=== PATIENT | male | born 1950 | race Caucasian/White ===

== ENCOUNTER → 2019-05-10 | Outpatient (CLI) | payer MEDICARE, OTHER ==
[~2019-05-10] MED LIST: ASPI81CH PO; ATEN25; CRUTCH4 USE; DIPH50 PO; FAMO20 PO; FENO67 PO; HYDACE5 PO; LISI5 PO; METF500 PO; PRED20 PO
== END | disposition home or self-care (01) ==
LOC: LAB SHORT 10:47 → PLD 10:47
DX: D48.5 Neoplasm of uncertain behavior of skin (principal)
CPT/HCPCS: 88305

== ENCOUNTER 2019-10-22 09:38 | Inpatient (IN) | payer MEDICARE, OTHER ==
[~2019-10-22] VITALS: Ht 182.9 cm; Wt 98.0 kg
[~2019-10-22 09:38] MED LIST changes: -ASPI81CH PO; +Aspir 8181 MG PO; -FENO67 PO
[2019-10-22 11:14] LABS: Source, Urine Clean Catch
[2019-10-22 11:15] LABS: BASOPHILS ABSOLUTE AUTO 0.09 K/mm3 (0.00-0.23); BASOPHILS PERCENT AUTO 0 % (0-2); EOSINOPHILS ABSOLUTE AUTO 0.02 K/mm3 (0.00-0.68); EOSINOPHILS PERCENT AUTO 0 % (0-6); Hematocrit 45.5 % (37.0-53.0); Hemoglobin 15.5 g/dL (13.5-17.5); IMMATURE GRAN ABSOLUTE AUTO 0.15 K/mm3 (0.00-0.10); IMMATURE GRAN PERCENT AUTO 1 % (0-1); LYMPHOCYTES ABSOLUTE AUTO 1.91 K/mm3 (0.84-5.20); LYMPHOCYTES PERCENT AUTO 7 % (21-46); MONOCYTES ABSOLUTE AUTO 1.65 K/mm3 (0.16-1.47); MONOCYTES PERCENT AUTO 6 % (4-13); Mean Corpuscular HGB Conc 34.1 g/dL (31.5-36.5); Mean Corpuscular Volume 88 fL (80-100); NEUTROPHILS ABSOLUTE AUTO 22.11 K/mm3 (1.96-9.15); NEUTROPHILS PERCENT AUTO 85 % (41-73); Platelet Count 241 K/mm3 (150-400); RDW Coefficient Variation 13.8 % (11.7-14.2); RDW Standard Deviation 44.9 fL (35.1-46.3); Red Blood Cell Count 5.16 M/mm3 (4.30-5.90); White Blood Cell Count 25.93 K/mm3 (4.00-11.30)
[2019-10-22 11:20] LABS: Bilirubin, Urine Neg (Neg); Blood, Urine 2+ (Neg); Glucose Qualitative, Urine Neg (Neg); Ketones, Urine 1+ (Neg); Leukocyte Esterase, Urine Neg (Neg); Nitrite, Urine Neg (Neg); Protein, Urine 3+ (Neg); Specific Gravity, Urine 1.015 (1.003-1.022); Urobilinogen, Urine 2+ (Normal)
[2019-10-22 11:38] LABS: Alanine Aminotransfer (ALT/SGP 30 U/L (12-78); Albumin/Globulin Ratio 0.6 (0.8-1.8); Alk Phos 75 U/L (50-136); Anion Gap 12 mmol/L (6-16); Aspartate Aminotrans (AST/SGOT 24 U/L (12-37); Bilirubin, Total 0.8 mg/dL (0.1-1.0); Blood Urea Nitrogen 25 mg/dL (8-24); Bun/Creatinine Ratio 23.1 (12.0-20.0); CO2, Blood 22 mmol/L (21-32); Chloride, Blood 100 mmol/L (98-108); Creatinine, Blood 1.08 mg/dL (0.60-1.20); Globulin, Blood 5.1 g/dL (2.2-4.0); Glomerular Filtration Rate >60 (60-); Glucose, Blood 174 mg/dL (70-99); Potassium, Blood 4.4 mmol/L (3.5-5.5); Sodium, Blood 134 mmol/L (136-145); Total Protein, Blood 8.1 g/dL (6.4-8.2)
[2019-10-22 11:43] LABS: Appearance, Urine Hazy (Clear); Color, Urine Yellow (P-Yellow)
[2019-10-22 11:44] LABS: Bacteria Mod /hpf; Squamous Epithelial Cells Few /hpf (Few)
[2019-10-22 11:45] LABS: Mucus Light (0-Heavy)
[2019-10-22] MEDS ORDERED: MULTIVITAMINS1 EAC3 PO (12:55)
[2019-10-22] MEDS ORDERED: OMEP20ER PO (12:56)
[2019-10-22] MEDS ORDERED: KRILL OIL500 MG PO (12:56)
[2019-10-22] MEDS ORDERED: TURMERIC 500 M1 EACH PO (12:57)
[2019-10-22] MEDS ORDERED: Cinnamon500 MG PO (12:57)
[2019-10-22] MEDS ORDERED: ROSU5 PO (12:58)
[2019-10-22 14:08] LABS: Thyroid Stimulating Hormone 1.76 uIU/mL (0.360-4.800)
[2019-10-22] MEDS ORDERED: METF500 PO (15:34)
--- NOTE | 2019-10-22 15:50 | NUR ---
PT ARRIVED TO FLOOR FROM ED VIA STRETCHER AAOX3 @ 1540. VS STABLE, ASIDE FROM ELEVATED HR. HR AFIB 110-120S ON TELE MONITOR; PT DENIES ANY SOB, CHEST PAIN, OR PALPITATIONS. PT C/O MILD RUQ ABDOMINAL PAIN RATING 3/10, PREVIOUSLY GIVEN FENTANYL IN ED. PT REMAINS NPO AT THIS TIME; PLAN IS FOR POSSIBLE LAP NAREN TODAY IF HR COMES DOWN. PT GIVEN 25MG LOPRESSOR PO & 500CC NS BOLUS HUNG PER MD ORDER. ADMISSION DOCUMENTATION TO BE COMPLETED. FAMILY AT BEDSIDE; ORIENTED PT & FAMILY TO ROOM, EDUCATED ON FALL PRECAUTIONS, & DISCUSSED PLAN. WILL CONTINUE TO MONITOR.
--- NOTE | 2019-10-22 16:52 | NUR ---
Surgical site prepped with 2% Chlorhexidine cloth wipe. Lungs clear T/O to Auscultation. History, Chart, Medications and Allergies reviewed before start of procedure.Patient confirms NPO status and agrees with scheduled surgery. Pre-Op teaching done. Pt verbalizes understanding. Patient States Post-Procedure ride home has been arranged.
--- NOTE | 2019-10-22 19:07 | NUR ---
SHIFT SUMMARY NO ACUTE CHANGES FROM PRIOR. PT WAS TRANSPORTED OFF FLOOR TO OR FOR LAP NAREN @ 3468. PT CURRENTLY IN PACU. REPORT GIVEN TO OXYGEN EQUIPMENT TECHNICIAN MARK CORONEL.
[2019-10-23 05:35] LABS: BASOPHILS ABSOLUTE AUTO 0.03 K/mm3 (0.00-0.23); BASOPHILS PERCENT AUTO 0 % (0-2); EOSINOPHILS ABSOLUTE AUTO 0.01 K/mm3 (0.00-0.68); EOSINOPHILS PERCENT AUTO 0 % (0-6); Hematocrit 40.6 % (37.0-53.0); Hemoglobin 13.4 g/dL (13.5-17.5); IMMATURE GRAN ABSOLUTE AUTO 0.04 K/mm3 (0.00-0.10); IMMATURE GRAN PERCENT AUTO 0 % (0-1); LYMPHOCYTES ABSOLUTE AUTO 1.26 K/mm3 (0.84-5.20); LYMPHOCYTES PERCENT AUTO 9 % (21-46); MONOCYTES PERCENT AUTO 6 % (4-13); Mean Corpuscular HGB 30.2 pg (26.0-34.0); Mean Platelet Volume 10.6 fL (9.1-12.4); NEUTROPHILS ABSOLUTE AUTO 12.32 K/mm3 (1.96-9.15); NEUTROPHILS PERCENT AUTO 85 % (41-73); Platelet Count 229 K/mm3 (150-400); RDW Coefficient Variation 14.2 % (11.7-14.2); RDW Standard Deviation 47.9 fL (35.1-46.3); Red Blood Cell Count 4.44 M/mm3 (4.30-5.90); White Blood Cell Count 14.46 K/mm3 (4.00-11.30)
[2019-10-23 05:42] LABS: Mean Corpuscular Volume 91 fL (80-100)
--- NOTE | 2019-10-23 05:43 | NUR ---
PATIENT CONDITION IMPROVING SINCE RETURN FROM PACU. PAIN IS MORE CONTROLLED AND PATIENT IS SITTING SELF ON SIDE OF BED TO URINATE. HARDEEP DRAIN DRAIN RED FLUIDS.
[2019-10-23 05:58] LABS: Alanine Aminotransfer (ALT/SGP 52 U/L (12-78); Albumin, Blood 2.3 g/dL (3.4-5.0); Albumin/Globulin Ratio 0.5 (0.8-1.8); Alk Phos 68 U/L (50-136); Anion Gap 9 mmol/L (6-16); Aspartate Aminotrans (AST/SGOT 35 U/L (12-37); Bilirubin, Total 0.5 mg/dL (0.1-1.0); Blood Urea Nitrogen 22 mg/dL (8-24); Bun/Creatinine Ratio 19.6 (12.0-20.0); CO2, Blood 24 mmol/L (21-32); Calcium, Blood 7.6 mg/dL (8.5-10.1); Chloride, Blood 106 mmol/L (98-108); Creatinine, Blood 1.12 mg/dL (0.60-1.20); Globulin, Blood 4.2 g/dL (2.2-4.0); Glomerular Filtration Rate >60 (60-); Glucose, Blood 197 mg/dL (70-99); Potassium, Blood 3.9 mmol/L (3.5-5.5); Sodium, Blood 139 mmol/L (136-145); Total Protein, Blood 6.5 g/dL (6.4-8.2)
--- NOTE | 2019-10-23 08:00 | NUR ---
ASSUMPTION OF CARE RECEIVED REPORT FROM CLIENT SERVICES VICE PRESIDENT MARK CORONEL @ 0700. PT AAOX3 RESTING IN BED, VS STABLE. PT C/O RUQ ABDOMINAL PAIN RATING 7/10; PAIN MEDS ADMINISTERED. PT S/P LAP NAREN, ABDOMINAL INCISIONS PRESENT X4, STERISTRIPS IN PLACE, HARDEEP DRAIN PRESENT TO BULB SUCTION DRAINING SEROSANGUINOUS FLUID. PT OPEN FOR ECHO TODAY. BED LOCKED & IN LOWEST POSITION, CALL BAUTISTA W/ IN REACH. WILL CONTINUE TO MONITOR.
--- NOTE | 2019-10-23 18:24 | NUR ---
SHIFT SUMMARY PT'S PAIN UNCONTROLLED EARLIER, REPORTING 7/10 PAIN IN ABDOMEN AFTER ADMINISTRATION OF MEDICATION; DISCUSSED W/ DR. LEWIS; ORDERED NEW PAIN MEDICATION WHICH PT REPORTS GAVE HIM MUCH RELIEF. HR AVERAGED 110-120S MOST OF SHIFT; DID JUMP UP TO 130S-140S AT ONE POINT, IV LOPRESSOR ADMINISTERED, HR CAME DOWN TO 110-120S. NO CHANGES TO ABDOMINAL INCISION SITES. PT CURRENTLY SITTING UP IN CHAIR IN NO DISTRESS. FAMILY AT BEDSIDE. WILL CONTINUE TO MONITOR UNTIL END OF SHIFT.
[2019-10-24 04:17] LABS: BASOPHILS ABSOLUTE AUTO 0.04 K/mm3 (0.00-0.23); BASOPHILS PERCENT AUTO 0 % (0-2); EOSINOPHILS ABSOLUTE AUTO 0.15 K/mm3 (0.00-0.68); EOSINOPHILS PERCENT AUTO 2 % (0-6); Hemoglobin 11.5 g/dL (13.5-17.5); IMMATURE GRAN ABSOLUTE AUTO 0.05 K/mm3 (0.00-0.10); IMMATURE GRAN PERCENT AUTO 1 % (0-1); LYMPHOCYTES ABSOLUTE AUTO 1.37 K/mm3 (0.84-5.20); LYMPHOCYTES PERCENT AUTO 14 % (21-46); MONOCYTES ABSOLUTE AUTO 0.79 K/mm3 (0.16-1.47); MONOCYTES PERCENT AUTO 8 % (4-13); Mean Corpuscular HGB 30.2 pg (26.0-34.0); Mean Corpuscular HGB Conc 32.9 g/dL (31.5-36.5); Mean Corpuscular Volume 92 fL (80-100); Mean Platelet Volume 10.3 fL (9.1-12.4); NEUTROPHILS ABSOLUTE AUTO 7.13 K/mm3 (1.96-9.15); NEUTROPHILS PERCENT AUTO 75 % (41-73); Platelet Count 208 K/mm3 (150-400); RDW Standard Deviation 47.4 fL (35.1-46.3); Red Blood Cell Count 3.81 M/mm3 (4.30-5.90); White Blood Cell Count 9.53 K/mm3 (4.00-11.30)
[2019-10-24 04:41] LABS: Anion Gap 7 mmol/L (6-16); Blood Urea Nitrogen 17 mg/dL (8-24); Bun/Creatinine Ratio 19.1 (12.0-20.0); CO2, Blood 25 mmol/L (21-32); Calcium, Blood 7.2 mg/dL (8.5-10.1); Chloride, Blood 108 mmol/L (98-108); Creatinine, Blood 0.89 mg/dL (0.60-1.20); Glomerular Filtration Rate >60 (60-); Glucose, Blood 158 mg/dL (70-99); Magnesium, Blood 2.3 mg/dL (1.6-2.4); Potassium, Blood 3.6 mmol/L (3.5-5.5); Sodium, Blood 140 mmol/L (136-145)
--- NOTE | 2019-10-24 06:13 | NUR ---
NO CHANGES THROUGHOUT SHIFT, PAIN BETTER CONTROLED, SITING ON SIDE OF BED IN GOOD SPIRITS.
--- NOTE | 2019-10-24 07:55 | NUR ---
ASSUMPTION OF CARE RECEIVED REPORT FROM MARK CORONEL. PT AAOX3 RESTING COMFORTABLY IN BED. NO S/S OF DISTRESS. VS STABLE. PAIN MUCH BETTER TODAY, CURRENTLY RATING 3/10. STERI STRIPS ON ABDOMINAL INCISIONS REMAIN CLEAN, DRY, & INTACT; HARDEEP DRAIN TO BULB SUCTION. BED LOCKED & IN LOWEST POSITION, CALL BAUTISTA W/ IN REACH. WILL CONTINUE TO MONITOR.
--- NOTE | 2019-10-24 17:08 | NUR ---
SHIFT SUMMARY NO ACUTE CHANGES THROUGHOUT SHIFT. VS STABLE. HR RANGING FROM 120-130S; METOPROLOL WAS INCREASED FROM 25MG TO 50MG BID. PAIN WAS BETTER CONTROLLED TODAY. PT DENIES ANY C/O CHEST PAIN, PALPITATIONS, OR SOB. ABOUT 75 CC EMPTIED FROM HARDEEP DRAIN. PT CURRENTLY SITTING OOB IN CHAIR. WILL CONTINUE TO MONITOR UNTIL END OF SHIFT.
--- NOTE | 2019-10-25 01:03 | NUR ---
UPDATE PT A&O; C/O ABDOMEN PAIN; BRACING W/ PILLOW; REPOSITIONED AND MEDICATED PER EMAR; HARDEEP DRAINING PINK SANGUENOUS; AFIB NOTED ON TELE W/ HR 100'S; O2 SATS >93 ON RA; DIM LUNG SOUNDS NOTED; PT CURRENTLY SLEEPING; CALL LIGHT IN REACH; BED IN LOWEST POSITION; HAND OFF REPORT GIVEN TO MARK CORONEL.
--- NOTE | 2019-10-25 19:46 | NUR ---
SHIFT SUMMARY: PT ALERT AND ORIENTED, HRR AFIB ON THE 150'S WITH MOVEMENTS/EXCERTION 110'S-120'S WITH RESTING PERIOD. DR WRIGHT SAW PT TODAY PULLED HARDEEP DRAIN OUT, 2X GAUZE DRESSING IN PLACE WITH TRANSPARENT DRESSING, THE REST OF THE ABD SITES POST LAP NAREN REMAINED INTACT AND WNL. PT FOR POSS DISCHARGE TOMORROW DEPENDING ON HEART FUNCTION, PT WITH ORDER FO INCREASE DOSE OF TOPROLOL PO TO 75 MG BID. NO CHEST PAIN REPORTED FOR THE SHIFT. PT OFFERED PRUNE JUICE FOR BOWEL AND HAS LARGE BM RESULT. PT CURRENTLY RESTING IN BED CALL LIGHTS WITHIN REACH, REPORT GIVEN TO ONCOMING NURSE.
--- NOTE | 2019-10-26 06:00 | NUR ---
SHIFT SUMMARY. REPORTS POST NASAL GTT AND PRODUCES LOOSE COUGH LAST NOC. FEW BBC NOTED. ENC TO TURN COUGH AND DEEP BREATHE .INDEPENDENT IN ROOM AND NO ACUTE DISCOMFORT.REPORTS LOWER ABD CRAMPING AND REQ PAIN MED AND SLEEPER . HAD GOOD BM AND REFUSED STOOL SOFTENER. ABD DSG D+I. SLEPT ALL NOC W/ SLEEP STUDY IN PROGRESS. NOTED WHEN AWAKE AND IF OOB TO BR. AF HR 140 . WHEN ASLEEP POST LOPRESSOR INCREASE DOSE AF HR 90-114.REOPORT TO DAY RN AND EVAL WHEN MORE OOB THIS AM. NO ACUTE ISSUES, NOW. NO NAUSEA OR GI DISTRESS
[2019-10-26 11:13] LABS: Hematocrit 38.4 % (37.0-53.0); Hemoglobin 12.8 g/dL (13.5-17.5); Mean Corpuscular HGB 29.9 pg (26.0-34.0); Mean Corpuscular HGB Conc 33.3 g/dL (31.5-36.5); Mean Corpuscular Volume 90 fL (80-100); Mean Platelet Volume 10.1 fL (9.1-12.4); Platelet Count 332 K/mm3 (150-400); RDW Coefficient Variation 13.7 % (11.7-14.2); RDW Standard Deviation 44.5 fL (35.1-46.3); Red Blood Cell Count 4.28 M/mm3 (4.30-5.90); White Blood Cell Count 8.02 K/mm3 (4.00-11.30)
[2019-10-26 11:38] LABS: Anion Gap 7 mmol/L (6-16); Blood Urea Nitrogen 12 mg/dL (8-24); Bun/Creatinine Ratio 13.6 (12.0-20.0); CO2, Blood 27 mmol/L (21-32); Calcium, Blood 8.3 mg/dL (8.5-10.1); Chloride, Blood 105 mmol/L (98-108); Creatinine, Blood 0.89 mg/dL (0.60-1.20); Glomerular Filtration Rate >60 (60-); Glucose, Blood 225 mg/dL (70-99); Potassium, Blood 3.6 mmol/L (3.5-5.5); Sodium, Blood 139 mmol/L (136-145)
--- NOTE | 2019-10-26 14:02 | NUR ---
permission of care was given at 1400 on 10/26/2019.
--- NOTE | 2019-10-26 16:46 | NUR ---
SHIFT SUMMARY: PT ALERT AND ORIENTED, AMBULATING FREQUENTLY IN THE UNIT AND ROOM. PT TO STAY ONE MORE NIGHT FOR OBSERVATION, NEW ORDER RECEIVED FOR CARDIZEM DRIP, HR STILL STAYS AT 100-110'S AFIB. LUNGS WITH BILAT BASILAR CRACKLES, NO SOB/, SATS ABOVE 90% ON ROOMAIR. DENIES CHEST PAIN FOR THE SHIFT. BP SYSTOLIC RANGING ON THE 120'S-130'S. PT ON CLOSE HEART MONITORING FOR CARDIZEM DRIP. CURENTLY AT 10MG/HR AT THIS TIME. PT CURRENTLY RESTING IN BED, ABDOMINAL INCISION SITE INTACT, NO REPORTED ABD PAIN. PT C/O ALLERGY, WATERY EYES AND RUNNY NOSE, LORATIDINE ORDER GIVEN, AWAITING FOR RESPONSE FOR EFFECTIVENESS. TO GIVE REPROT TO ONCOMING SHIFT.
--- NOTE | 2019-10-27 03:18 | NUR ---
ASSUMED CARE AT 1900. NOTED WHEN OOB TO BR, AF HR 130. CARDIZEM GTT AT 10 MG HR. LOPRESSOR 100MG GIVEN PER SCHEDULED AND OFF TO SLEEP POST SLEEPING AID. HR NOTED TO HIT 66, TURNED DOWN CARDIZEM DOWN TO 5 MG HR 2230. BP LOWER POST LOPRESSOR AND HALF ASLEEP. RECHECK BP IN 1.5 HR AND WNL.BY 2330 CARDIZEM 2 MG HR. W/ HR 70-80'S. WHEN OOB TO BR, AF HR UP TO 110, WHILE UP. BACK TO SLEEP AVERAGING, 90'S..THEN OOB TO BR AVERAGE 110. DENIES ANY PAIN. STERI STRIPS AND ABD DSG WNL / INTACT. LOWER EXT 2 + PITTING EDEMA. NO SOB WHEN UP . LUNGS CLEAR
--- NOTE | 2019-10-27 06:17 | NUR ---
SHIFT SUMMARY CARDIZEM TURNED OFF NOW WITH RATE AT 2 MG HR SINCE MID NOC 80'S AND 90'S AVERAGE. OOB TO BR WHEN FIRST TURNED OFF AND NOTED 120 . WHEN BACK TO BED 100. NO ACUTE DISCOMFORT. RARE CRAMPING LOWER ABD, NO NAUSEA
--- NOTE | 2019-10-27 08:00 | NUR ---
ASSUMPTION OF CARE RECEIVED REPORT AROUND 0710. PT AAOX4. VS STABLE; HR AVERAGING AFIB 90-110S. NO S/S OF DISTRESS. PT DENIES ANY C/O PAIN, SOB, OR PALPITATIONS. ABDOMINAL INCISIONS C/D/I - STERI STRIPS PRESENT X3, GAUZE/TEGADERM PRESENT TO RT LOWER ABD. PT CURRENTLY SITTING OOB IN CHAIR, HAS BEEN WALKING AROUND UNIT FREQUENTLY. PT REPORTS FEELING GREAT TODAY. PLAN FOR POSSIBLE DISCHARGE IF HR CONTORLLED. WILL CONTINUE TO MONITOR.
[2019-10-27] MEDS ORDERED: Loratadine10 MG PO (12:17)
[2019-10-27] MEDS ORDERED: LEVFLO500 PO (12:43)
[2019-10-27] MEDS ORDERED: METO100 PO (12:43)
[2019-10-27] MEDS ORDERED: XARELTO20 MG PO (12:44)
[2019-10-27] MEDS ORDERED: Culturelle1 CAP PO (12:44)
--- NOTE | 2019-10-27 13:14 | NUR ---
Pt is doing well sitting thai a chair near the window and talking with his
--- NOTE | 2019-10-27 14:34 | NUR ---
DISCHARGE SUMMARY NO ACUTE CHANGES THROUGHOUT SHIFT. VS REMAINED STABLE. HR AVERAGED BETWEEN 90-100S. PT DENIED ANY C/O CHEST PAIN, SOB, OR PALPITATIONS. DISCHARGE EDUCATION COMPLETED W/ PT & PT'S . DISCUSSED MED REC & FOLLOW UP INSTRUCTIONS. PT VERBALIZED UNDERSTANDING & STATED HE WOULD FOLLOW UP INSTRUCTED W/ PCP/FOUNDRY PROCESS ENGINEER/SURGEON & TAKE MEDS PRESCRIBED. DETAILED DISCUSSION W/ PT & ABOUT AFIB S/S, RISKS, & IMPORTANCE OF ADHERENCE TO MEDS. EMPHASIZED TO SEEK MEDICAL ATTENTION IF PT PRESENTS W/ CHEST PAIN, SOB, PALPITATIONS. PT VERBALIZED UNDERSTANDING. DISCUSSED POST-OP NAREN CARE & PROVIDED HANDOUT ON LOW-FAT DIET. PT & TO PICKUP NEW PRESCRIPTIONS AT THEIR HOME PHARMACY. IV & TELE REMOVED. ALL PAPERWORK & BELONGINGS GIVEN TO PT & PT'S . PT DISCHARGED HOME. DECLINED WHEELCHAIR, AMBULATED OFF UNIT IN STABLE CONDITION.
== END 2019-10-27 14:20 | disposition home or self-care (01) | DRG 854 ==
LOC: ER 09:38 → PCU 13:22
PROVIDERS: Internal Medicine; Nurse Practitioner Acute Care; Physician Assistant; Surgery; ADMIT Internal Medicine
PROC: 0FT44ZZ Resection of Gallbladder, Percutaneous Endoscopic Approach (ICD-10-PCS; 2019-10-22)
PROC: BF101ZZ Fluoroscopy of Bile Ducts using Low Osmolar Contrast (ICD-10-PCS; principal; 2019-10-22 14:45)
DX: A41.9 Sepsis, unspecified organism (principal); K81.0 Acute cholecystitis; Z87.891 Personal history of nicotine dependence; K21.9 Gastro-esophageal reflux disease without esophagitis; G47.33 Obstructive sleep apnea (adult) (pediatric); I10 Essential (primary) hypertension; E11.9 Type 2 diabetes mellitus without complications; Z79.84 Long term (current) use of oral hypoglycemic drugs; E78.5 Hyperlipidemia, unspecified; K82.A1 Gangrene of gallbladder in cholecystitis; I48.0 Paroxysmal atrial fibrillation; Z79.82 Long term (current) use of aspirin
CPT/HCPCS: 36415; 71045; 74176; 74300; 80048; 80053; 81001; 82947; 83605; 83690; 83735; 83880; 84443; 84484; 85025; 85027; 87040; 87070; 87075; 87076; 87077; 87086; 87185; 87186; 87205; 88304; 93005; 93010; 93306; 94762; 96361; 96365; 96375; 99285-25; A9270-GY; C1729; C9113; J1170; J2250; J2543; J2704; J3010; J7030; J7040; J7120; Q0163

== ENCOUNTER 2023-09-05 07:59 | Day surgery (SDC) | payer OTHER ==
[~2023-09-05] VITALS: Ht 180.3 cm; Wt 84.2 kg
[~2023-09-05 07:59] MED LIST changes: +Cinnamon500 MG PO; +Culturelle1 CAP PO; +KRILL OIL500 MG PO; +LEVFLO500 PO; +Lisinopril2.5 MG; +Loratadine10 MG PO; +METO100 PO; +MULTIVITAMINS1 EAC3 PO; +OMEP20ER PO; +ROSU10TA PO; +ROSU5 PO; +TURMERIC 500 M1 EACH PO; +XARELTO20 MG PO
[2023-09-05] MEDS ORDERED: FARXIGA10 MG PO (08:35)
[2023-09-05 10:17] VITALS: BP 115/80
== END 2023-09-05 10:10 | disposition home or self-care (01) ==
LOC: ORSCSDS 07:59
PROVIDERS: Surgery
PROC: 0DJD8ZZ Inspection of Lower Intestinal Tract, Via Natural or Artificial Opening Endoscopic (ICD-10-PCS; principal; 2023-09-05 09:15)
DX: Z12.11 Encounter for screening for malignant neoplasm of colon (principal); Z86.010 Personal history of colon polyps; K57.30 Diverticulosis of large intestine without perforation or abscess without bleeding; E11.9 Type 2 diabetes mellitus without complications; I10 Essential (primary) hypertension; E78.5 Hyperlipidemia, unspecified; I48.91 Unspecified atrial fibrillation; Z79.84 Long term (current) use of oral hypoglycemic drugs; Z79.899 Other long term (current) drug therapy
CPT/HCPCS: 82947; J2704; J7120

== ENCOUNTER 2024-10-28 08:24 | Inpatient (IN) | payer OTHER ==
[~2024-10-28] VITALS: Ht 182.9 cm; Wt 81.4 kg
[~2024-10-28 08:24] MED LIST changes: +FARXIGA10 MG PO; -Lisinopril2.5 MG; -METO100 PO; +METO100ER PO; -MULTIVITAMINS1 EAC3 PO; +MULVITA PO
[2024-10-28] MEDS ORDERED: NS 1,000 ML IV SCH (09:10)
[2024-10-28 09:16] LABS: BASOPHILS ABSOLUTE AUTO 0.02 K/mm3 (0.00-0.23); BASOPHILS PERCENT AUTO 0 % (0-2); EOSINOPHILS ABSOLUTE AUTO 0.02 K/mm3 (0.00-0.68); EOSINOPHILS PERCENT AUTO 0 % (0-6); Hematocrit 45.3 % (37.0-53.0); Hemoglobin 15.8 g/dL (13.5-17.5); IMMATURE GRAN ABSOLUTE AUTO 0.02 K/mm3 (0.00-0.10); IMMATURE GRAN PERCENT AUTO 0 % (0-1); LYMPHOCYTES ABSOLUTE AUTO 0.54 K/mm3 (0.84-5.20); LYMPHOCYTES PERCENT AUTO 7 % (21-46); MONOCYTES ABSOLUTE AUTO 0.03 K/mm3 (0.16-1.47); MONOCYTES PERCENT AUTO 0 % (4-13); Mean Corpuscular HGB 31.9 pg (26.0-34.0); Mean Corpuscular HGB Conc 34.9 g/dL (31.5-36.5); Mean Corpuscular Volume 92 fL (80-100); Mean Platelet Volume 10.1 fL (9.1-12.4); NEUTROPHILS ABSOLUTE AUTO 7.16 K/mm3 (1.96-9.15); NEUTROPHILS PERCENT AUTO 92 % (41-73); Platelet Count 140 K/mm3 (150-400); RDW Coefficient Variation 14.3 % (11.7-14.2); RDW Standard Deviation 47.9 fL (35.1-46.3); Red Blood Cell Count 4.95 M/mm3 (4.30-5.90); White Blood Cell Count 7.79 K/mm3 (4.00-11.30)
[2024-10-28 09:30] LABS: Free Thyroxine 1.37 ng/dL (0.70-1.60)
[2024-10-28 09:33] LABS: Albumin, Blood 3.9 g/dL (3.4-5.0); Albumin/Globulin Ratio 1.2 (0.8-1.8); Bilirubin, Total 2.1 mg/dL (0.1-1.0); Bun/Creatinine Ratio 21.3 (12.0-20.0); Creatinine, Blood 0.89 mg/dL (0.60-1.20); Globulin, Blood 3.3 g/dL (2.2-4.0); Potassium, Blood 4.3 mmol/L (3.5-5.5); Thyroid Stimulating Hormone 2.14 uIU/mL (0.360-4.800); Total Protein, Blood 7.2 g/dL (6.4-8.2)
[2024-10-28 09:43] LABS: Source, Urine Clean Catch
[2024-10-28 09:47] LABS: Base Excess Venous -1.6 mmol/L; PCO2 Venous 38.3 mmHg (38-42); pH Blood Venous 7.39 (7.34-7.37)
[2024-10-28 09:56] LABS: Appearance, Urine Clear (Clear); Bilirubin, Urine Neg (Neg); Blood, Urine Neg (Neg); Color, Urine Yellow (P-Yellow); Glucose Qualitative, Urine Neg (Neg); Ketones, Urine Neg (Neg); Leukocyte Esterase, Urine Neg (Neg); Nitrite, Urine Neg (Neg); Protein, Urine Neg (Neg); Urobilinogen, Urine 2+ (Normal)
[2024-10-28 10:10] LABS: Influenza A, PCR NEGATIVE (NEGATIVE); Influenza B, PCR NEGATIVE (NEGATIVE); Resp Syncytial Virus, PCR NEGATIVE (NEGATIVE); SARS-Cov-2 (COVID-19) PCR, MMC NEGATIVE (NEGATIVE)
[2024-10-28 11:10] LABS: International Normalized Ratio 1.22; Prothrombin Time Results 12.9 Sec (9.7-11.5)
[2024-10-28] MEDS ORDERED: NS 500 ML IV SCH (12:05)
[2024-10-28] MEDS ORDERED: Polyethylene Glycol 3350 17 gm PO PRN (12:35)
[2024-10-28] MEDS ORDERED: FLU VACC TS2024-25(6MOS UP)/PF 45 MCG/0.5 ML SYRINGE IM ONE (12:35)
[2024-10-28] MEDS ORDERED: Lactated Ringer's 1,000 ML IV SCH (12:35)
[2024-10-28] MEDS ORDERED: Ondansetron HCl 2 MG / ML 2ML Vial IV PRN (12:35)
[2024-10-28] MEDS ORDERED: Acetaminophen 325 MG TABLET PO PRN (12:40)
[2024-10-28 12:45] LABS: U Amphetamine Screen Not Detected; U Barbituate Screen Not Detected; U Benzodiazapine Screen Not Detected; U Buprenorphine Screen Not Detected; U Cannabinoids Screen Not Detected; U Cocaine Screen Not Detected; U Methadone Screen Not Detected; U Methamphetamine Screen Not Detected; U Opiates Screen DETECTED; U Oxycodone Screen Not Detected; U Phencyclidine Screen Not Detected
[2024-10-28] MEDS ORDERED: Lactated Ringer's 1,000 ML IV ONE (14:09)
[2024-10-28 15:09] LABS: Albumin, Blood 3.3 g/dL (3.4-5.0); Albumin/Globulin Ratio 1.2 (0.8-1.8); Bilirubin, Direct 0.7 mg/dL (0.0-0.3); Bilirubin, Indirect 0.6 mg/dL (0.1-0.7); Bilirubin, Total 1.3 mg/dL (0.1-1.0); Globulin, Blood 2.7 g/dL (2.2-4.0)
[2024-10-28 15:15] LABS: Phosphorus, Blood 0.8 mg/dL (2.5-4.9)
[2024-10-28] MEDS ORDERED: NS IV SCH (16:00)
[2024-10-28] MEDS ORDERED: SODIUM PHOSPHATE IV SCH (16:00)
[2024-10-28 16:30] VITALS: BP 118/70
[2024-10-28] MEDS ORDERED: Insulin Human Lispro 100 Units/ML 3ML Syringe SC SCH (16:30)
[2024-10-28] MEDS ORDERED: EZALLOR SPRINKL10 MG PO (16:41)
[2024-10-28] MEDS ORDERED: ROSUVASTATIN CAL5 MG PO (16:42)
[2024-10-28] MEDS ORDERED: VISBIOME 112.51 EACH PO (16:45)
[2024-10-28] MEDS ORDERED: VITAMIN E180 MG PO (16:45)
--- NOTE | 2024-10-28 17:58 | NUR ---
PT ARRIVED TO ROOM AT 1424 AOX4 WITH NO DISTRESS NOTED. PT SETTLED INTO ROOM WITH CALL LIGTHT IN REACH. FAMILY AT BEDSIDE. WILL CONTINUE TO MONITOR.
[2024-10-28 20:13] VITALS: BP 109/62
[2024-10-29] VITALS (7 sets, daily range): BP systolic 90–144; BP diastolic 54–82
--- NOTE | 2024-10-29 04:15 | NUR ---
SHIFT SUMMAR PATIENT HAD NO ACUTE CHANGES. ALERT, ORIENTED, AND INDEPENDENT. PIVS INTACT. TELE MONITOR NSR 87. CBG 121. DENIES CHEST PAIN, SOB, AND N/V. VSS/AFEBRILE. NPO. LR INFUSING @150 mL/HR. IV PHOS FINISHED INFUSING. SLEPT MOST OF THE SHIFT. COOPERATIVE WITH CARE. CALL LIGHT IN REACH. BED IN LOWEST POSITION. WILL CONTINUE TO MONITOR UNTIL DAY SHIFT NURSE ASSUMES CARE.
[2024-10-29 06:25] LABS: BASOPHILS ABSOLUTE AUTO 0.03 K/mm3 (0.00-0.23); BASOPHILS PERCENT AUTO 0 % (0-2); EOSINOPHILS ABSOLUTE AUTO 0.16 K/mm3 (0.00-0.68); EOSINOPHILS PERCENT AUTO 2 % (0-6); Hemoglobin 12.2 g/dL (13.5-17.5); IMMATURE GRAN ABSOLUTE AUTO 0.04 K/mm3 (0.00-0.10); IMMATURE GRAN PERCENT AUTO 0 % (0-1); LYMPHOCYTES ABSOLUTE AUTO 1.14 K/mm3 (0.84-5.20); LYMPHOCYTES PERCENT AUTO 12 % (21-46); MONOCYTES ABSOLUTE AUTO 0.65 K/mm3 (0.16-1.47); MONOCYTES PERCENT AUTO 7 % (4-13); Mean Corpuscular HGB 31.9 pg (26.0-34.0); Mean Corpuscular HGB Conc 34.9 g/dL (31.5-36.5); Mean Corpuscular Volume 91 fL (80-100); Mean Platelet Volume 10.3 fL (9.1-12.4); NEUTROPHILS ABSOLUTE AUTO 7.45 K/mm3 (1.96-9.15); NEUTROPHILS PERCENT AUTO 79 % (41-73); Platelet Count 105 K/mm3 (150-400); RDW Coefficient Variation 14.6 % (11.7-14.2); RDW Standard Deviation 48.4 fL (35.1-46.3); Red Blood Cell Count 3.83 M/mm3 (4.30-5.90); White Blood Cell Count 9.47 K/mm3 (4.00-11.30)
[2024-10-29 06:48] LABS: Albumin, Blood 2.9 g/dL (3.4-5.0); Albumin/Globulin Ratio 1.1 (0.8-1.8); Bilirubin, Total 0.8 mg/dL (0.1-1.0); Bun/Creatinine Ratio 16.6 (12.0-20.0); Calcium, Blood 7.9 mg/dL (8.5-10.1); Creatinine, Blood 0.9 mg/dL (0.60-1.20); Globulin, Blood 2.7 g/dL (2.2-4.0); Potassium, Blood 3.6 mmol/L (3.5-5.5); Total Protein, Blood 5.6 g/dL (6.4-8.2)
[2024-10-29] MEDS ORDERED: Enoxaparin 40 MG/0.4 ML SYR SC SCH (09:00)
[2024-10-29] MEDS ORDERED: Metoprolol Succinate 50 MG TABCR PO SCH (09:00)
[2024-10-29] MEDS ORDERED: Rivaroxaban 10 MG Tab PO SCH (09:00)
[2024-10-29] MEDS ORDERED: Atorvastatin 10 MG Tab PO SCH (09:00)
[2024-10-29] MEDS ORDERED: Lisinopril 5 MG Tab PO SCH (09:00)
[2024-10-29] MEDS ORDERED: Gabapentin 300 MG Cap PO ONE ×2 (13:00→19:35)
[2024-10-29] MEDS ORDERED: Metoprolol Tartrate 25 MG Tab PO ONE (16:00)
--- NOTE | 2024-10-29 16:00 | NUR ---
PT ARRIVED TO ROOM AT 1320 AOX4 AND COOPERATIVE OF CARE. PT SETTLED INTO ROOM AND IS DOING WELL ON 2L O2 CURRENTLY. PT IS INDEPENDENT IN ROOM AND VERY STEADY ON HIS FEET. CALL LIGHT IS WITHIN REACH WILL CONTINUE TO MONITOR.
--- NOTE | 2024-10-29 16:02 | NUR ---
PT HAS BEEN DOING WELL TODAY. NO DISTRESS NOTED AND HAS BEEN ABLE TO EAT MEALS. PT INDEPENDENT TO ROOM. AT 1520 EVENT MARKETING INTERN NOTIFIED PT HAD HR IN AFIB AT 150 PT WAS USING RESTROOM. HR CONTINUED TO STAY AFIB 120s AND DR JACKSON WAS NOTIFIED AND ORDERED ONE TIME DOES BP MED PER EMAR. MEDICATION SEEMS TO BE EFFECTIVE HR AT 1600 WAS 95. PT ALSO WAS TREATED FOR TOOTH PAIN PER EMAR. PT RESTING IN BED CURRENTLY CALL LIGHT WITHIN REACH WILL CONTINUE TO MONITOR.
--- NOTE | 2024-10-29 16:57 | NUR ---
Jann (pt) is awake and convessational. Pt experienced liver problems but seems to be improving. Assessed pt's support system. Pt has local family connections, many of which are involved in healthcare. Pt feels supported by and is grateful for family. Pt was raised methodist but isn't actively praticing. Prayed with pt and he thanked me for the visit and wished me well.
[2024-10-30 00:11] VITALS: BP 107/64
[2024-10-30 04:01] VITALS: BP 117/82
[2024-10-30 05:59] LABS: BASOPHILS ABSOLUTE AUTO 0.03 K/mm3 (0.00-0.23); BASOPHILS PERCENT AUTO 1 % (0-2); EOSINOPHILS ABSOLUTE AUTO 0.06 K/mm3 (0.00-0.68); EOSINOPHILS PERCENT AUTO 1 % (0-6); Hematocrit 38.2 % (37.0-53.0); Hemoglobin 13.3 g/dL (13.5-17.5); IMMATURE GRAN ABSOLUTE AUTO 0.03 K/mm3 (0.00-0.10); IMMATURE GRAN PERCENT AUTO 1 % (0-1); LYMPHOCYTES ABSOLUTE AUTO 0.69 K/mm3 (0.84-5.20); LYMPHOCYTES PERCENT AUTO 12 % (21-46); MONOCYTES ABSOLUTE AUTO 0.35 K/mm3 (0.16-1.47); MONOCYTES PERCENT AUTO 6 % (4-13); Mean Corpuscular HGB 31.7 pg (26.0-34.0); Mean Corpuscular HGB Conc 34.8 g/dL (31.5-36.5); Mean Corpuscular Volume 91 fL (80-100); Mean Platelet Volume 10.5 fL (9.1-12.4); NEUTROPHILS ABSOLUTE AUTO 4.65 K/mm3 (1.96-9.15); NEUTROPHILS PERCENT AUTO 80 % (41-73); Platelet Count 96 K/mm3 (150-400); RDW Coefficient Variation 14.4 % (11.7-14.2); RDW Standard Deviation 48.4 fL (35.1-46.3); Red Blood Cell Count 4.19 M/mm3 (4.30-5.90); White Blood Cell Count 5.81 K/mm3 (4.00-11.30)
[2024-10-30 06:18] LABS: Albumin, Blood 3.1 g/dL (3.4-5.0); Bilirubin, Total 0.7 mg/dL (0.1-1.0); Bun/Creatinine Ratio 14.2 (12.0-20.0); Calcium, Blood 8.3 mg/dL (8.5-10.1); Creatinine, Blood 0.98 mg/dL (0.60-1.20); Potassium, Blood 3.8 mmol/L (3.5-5.5); Total Protein, Blood 6.1 g/dL (6.4-8.2)
[2024-10-30 07:10] VITALS: BP 118/87
[2024-10-30] MEDS ORDERED: Metoprolol Succinate 50 MG TABCR PO SCH (09:00)
[2024-10-30] MEDS ORDERED: Gabapentin 300 MG Cap PO ONE (09:35)
[2024-10-30 11:25] VITALS: BP 110/77
[2024-10-30] MEDS ORDERED: GABA300 PO (12:50)
[2024-10-30] MEDS ORDERED: Gabapentin 300 MG Cap PO SCH (14:00)
[2024-11-01 14:52] LABS: HEPATITIS A ANTIBODY, IGM Negative (Negative); HEPATITIS B CORE ANTIBODY, IGM Negative (Negative); HEPATITIS B SURFACE ANTIGEN Negative (Negative); HEPATITIS C AB CIA INTERP Negative (Negative); HEPATITIS C ANTIBODY CIA INDEX 0.04 IV
== END 2024-10-30 13:37 | disposition home or self-care (01) | DRG 444 ==
LOC: ER 08:24 → MEDS 12:32
PROVIDERS: Emergency Medicine; ADMIT Family Medicine
DX: K80.50 Calculus of bile duct without cholangitis or cholecystitis without obstruction (principal); G92.8 Other toxic encephalopathy; E87.1 Hypo-osmolality and hyponatremia; E11.9 Type 2 diabetes mellitus without complications; I10 Essential (primary) hypertension; I48.0 Paroxysmal atrial fibrillation; K08.89 Other specified disorders of teeth and supporting structures; D69.6 Thrombocytopenia, unspecified; G47.33 Obstructive sleep apnea (adult) (pediatric); K57.30 Diverticulosis of large intestine without perforation or abscess without bleeding; K83.8 Other specified diseases of biliary tract; Z91.013 Allergy to seafood; Z90.89 Acquired absence of other organs; Z98.52 Vasectomy status; Z90.49 Acquired absence of other specified parts of digestive tract; Z98.890 Other specified postprocedural states; Z87.891 Personal history of nicotine dependence; Z79.84 Long term (current) use of oral hypoglycemic drugs; Z79.01 Long term (current) use of anticoagulants; Z79.899 Other long term (current) drug therapy
CPT/HCPCS: 0241U; 36415; 70450; 71045; 74177; 74181; 80053; 80074; 80076; 80320; 81003; 82140; 82803; 82947; 84100; 84439; 84443; 85025; 85610; 85730; 93005; 93010; 96360-59; 99285-25; A9270; J7030; J7040; J7120; Q9967